=== PATIENT | male | born 1985 | race Caucasian/White ===

== ENCOUNTER 2017-07-10 19:35 | Emergency (ER) | payer OTHER, MEDICAID ==
[2017-07-10 20:41] VITALS: BP 100/44; PULSE 89; RESP 18; TEMP 97.9; O2SAT 98
--- NOTE | 2017-07-10 20:56 | C.PDOC ---
History Of Present Illness <Damián Stockton R - Last Filed: 07/10/17 20:51> <Dillon Dowell N - Last Filed: 07/10/17 21:22> Mr Wall is a 32 year old M with no significant past medical history who presents to our ER for left flank/chest pain at the level of T8-T10 which occurred yesterday afternoon while at work. 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 He states the pain is worse with cough (he's had a cough for the past 1 week). He also endorsed chills. He denies nausea, vomiting, diarrhea, recent travel. He did not take any medication for the pain. PMHx: denies PSHx: denies Allergies: denies Home meds: denies SocialHx: 5 cigs per day for past 15 years (Damián Stockton) History Per: Patient History/Exam Limitations: no limitations Onset/Duration Of Symptoms: Days Current Symptoms Are (Timing): Still Present Severity: Mild Pain Scale Rating Of: 7 Location Of Discomfort (Image): 1 - Pain at this location Quality: Sharp Recent travel outside of the [place]: No <Damián Stockton R - Last Filed: 07/10/17 20:51> <Dillon Dowell N - Last Filed: 07/10/17 21:22> Time Seen by Provider: 07/10/17 20:36 Chief Complaint (Nursing): Rib Injury Past Medical History - Medical History PMH: No Chronic Diseases Surgical History: No Surg Hx Family History: States: No Known Family Hx - Social History Hx Tobacco Use: Yes (5 cigs per day for past 15 years) Hx Alcohol Use: Yes Hx Substance Use: No - Immunization History Hx Tetanus Toxoid Vaccination: No Hx Influenza Vaccination: No Hx Pneumococcal Vaccination: No <Damián Stockton - Last Filed: 07/10/17 20:51> Vital Signs: Last Vital Signs Temp 97.9 F 07/10/17 20:38 Pulse 89 07/10/17 20:38 Resp 18 07/10/17 20:38 BP 100/44 L 07/10/17 20:38 Pulse Ox 98 07/10/17 21:00 Review Of Systems Constitutional: Positive for: Chills. Negative for: Fever, Sweats, Weakness, Weight loss Respiratory: Positive for: Cough, Pleuritic Pain. Negative for: Shortness of Breath Gastrointestinal: Negative for: Nausea, Vomiting, Abdominal Pain Genitourinary: Negative for: Dysuria Neurological: Negative for: Confusion <Damián Stockton R - Last Filed: 07/10/17 20:51> Eyes: Negative for: Pain ENT: Negative for: Ear Pain Cardiovascular: Negative for: Chest Pain, Palpitations, Orthopnea, Light Headedness Respiratory: Negative for: SOB with Excertion Skin: Negative for: Rash Neurological: Negative for: Weakness Psych: Negative for: Anxiety <Dillon Dowell N - Last Filed: 07/10/17 21:22> Physical Exam - Physical Exam Appears: Well, Non-toxic Skin: Normal Color Head: Atraumatic, Normacephalic Eye(s): bilateral: Normal Inspection, PERRL, EOMI Nose: Normal Oral Mucosa: Moist Tongue: Normal Appearing Teeth: Normal Dentition Neck: Normal, Normal ROM Chest: No Tenderness, No Subcutaneous Emphysema Cardiovascular: Rhythm Regular, No Murmur, No JVD Respiratory: Normal Breath Sounds, No Rales, No Rhonchi, No Wheezing Back: CVA Tenderness (left sided - tender to palpation) Neurological/Psych: Oriented x3, Normal Speech, Normal Cognition <Damián Stockton R - Last Filed: 07/10/17 20:51> ED Course And Treatment O2 Sat by Pulse Oximetry: 98 <Damián Stockton - Last Filed: 07/10/17 20:51> Medical Decision Making <Damián Stockton R - Last Filed: 07/10/17 20:51> <Dillon Dowell N - Last Filed: 07/10/17 21:22> Medical Decision Making: pt here with left sided flank pain. Musculoskeletal and reporducible. toradol given for pain. cxr tw oviewed -no pneumothorax/ no obvious rib fx. pt is ready for dc to home. (Dillon Dowell) Disposition <Damián Stockton - Last Filed: 07/10/17 20:51> - Disposition Disposition Time: 21:21 <Dillon Dowell - Last Filed: 07/10/17 21:22> - Disposition Disposition: HOME/ ROUTINE Condition: GOOD Additional Instructions: return if symptoms worsen Forms: [facility] [facility] [facility] (Japanese) - Clinical Impression Clinical Impression: Musculoskeletal chest pain
--- NOTE | 2017-07-11 08:33 | RAD ---
Chest x-ray two views History: Chest pain. Comparison: None available. Findings: No focal infiltrate or effusion. Heart size within normal limits. Impression: No focal infiltrate or effusion.
== END 2017-07-10 21:28 | disposition home or self-care (01) ==
LOC: C.ER 19:35
DX: R07.89 Other chest pain (principal); F17.210 Nicotine dependence, cigarettes, uncomplicated
CPT/HCPCS: 71046; 96372; 99284; J1885